=== PATIENT | male | born 1955 | race African-American/Black ===

== ENCOUNTER 2017-06-26 18:09 | Inpatient (IN) | payer OTHER, SELFPAY ==
[2017-06-26 18:55] LABS: #Basophils 0.1 thou/uL (0.0-0.2); #Eosinphils 0.2 thou/uL (0.0-0.7); #Lymphocytes 2.6 thou/uL (1.20-3.40); #Monocytes 0.8 thou/uL (0.11-0.59); #Neutrophils 7.5 thou/uL (1.40-6.50); %Eosinophils 1.7 % (0.0-10.0); %Lymphocytes 23.3 % (21.0-51.0); %Monocytes 6.9 % (0.0-10.0); Hematocrit 45.6 % (42.0-52.0); Mean Platelet Volume 7.8 fL (7.4-10.4); Red Blood Cell (RBC) Count 5.06 mill/uL (4.70-6.10); White Blood Cell (WBC) Count 11.2 thou/uL (4.8-10.8)
[2017-06-26 19:18] LABS: ALT (SGPT) 37 U/L (8-55); AST (SGOT) 21 U/L (5-34); Alkaline Phosphatase 57 U/L (40-150); Anion Gap 11 mmol/L (10-20); BUN (Urea Nitrogen) 11 mg/dL (8.4-25.7); Bilirubin, Total 0.5 mg/dL (0.2-1.2); Calc. Creatinine Clearance 0 mL/min (70-130); Calcium 9.5 mg/dL (7.8-10.44); Carbon Dioxide 27 mmol/L (23-31); Chloride 102 mmol/L (98-107); Estimated GFR-MDRD 52; Globulin 3.7 g/dL (2.4-3.5); Protein, Total 7.8 g/dL (5.8-8.1)
[2017-06-26] MEDS ORDERED: Ondansetron HCl/PF 4 MG/2 ML Vial ONE (19:18)
[2017-06-26 19:32] LABS: Bilirubin Negative (Negative); Blood, Urine Negative (Negative); Glucose, Urine (Dipstick) Negative (Negative); Ketone, Urine Negative (Negative); Nitrite Negative (Negative); Protein, Urine (Dipstick) Negative (Neg-Trace); Urobilinogen 0.2 mg/dL (0.2-1.0)
[2017-06-26 19:54] LABS: Troponin I Less than 0.010 ng/mL (< 0.028)
[2017-06-26 20:19] LABS: PTT 25.6 SEC (22.9-36.1); Prothrombin Time 13.1 SEC (12.0-14.7)
[2017-06-26 20:25] LABS: Acetaminophen Less than 6.0 mcg/mL (10.0-30.0); CK (CPK) 309 U/L (30-200); Salicylate Less than 8.0 mg/dL (15.0-30.0)
--- NOTE | 2017-06-26 20:46 | RAD ---
CHEST ONE VIEW: History: Altered mental status, diarrhea, fatigue. FINDINGS: Left cardiac margin is partially obscured by subtle infiltrate within the lingula of the left upper lobe. Mediastinum is midline. Right lung is well inflated. There is no evidence of pneumothorax. IMPRESSION: Subtle left upper lobe lingular infiltrate. Clinical correlation regarding other signs and symptoms of left upper lobe pneumonitis is required. Please consider upright PA and lateral views of the ches t when patient can undergo that exam. POS: [facility]
[2017-06-26 21:18] LABS: Amphetamine Not Detected (NotDetected); Methadone Not Detected (NotDetected); Methamphetamine Not Detected (NotDetected)
--- NOTE | 2017-06-26 21:59 | CT ---
CT HEAD NONCONTRAST: History: Altered mental status. FINDINGS: A wedge shaped area of decreased density at the left temporoparietal area extends through the overly ing cortex. There is no mass effect or shift of midline structures. No acute intracranial hemorrhage is evident. 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 No acute intracranial abnorm alities are demonstrated. POS: [facility]
[2017-06-26 22:43] LABS: Sodium 139 mmol/L (135-148)
[2017-06-26 22:44] LABS: Mode RA; Modified Allen's Test POSITIVE; Vent NO
[2017-06-26 23:24] LABS: Troponin I 0.015 ng/mL (< 0.028)
--- NOTE | 2017-06-26 23:49 | PDOC.EVN ---
Event Note - Event Note Event Note: [id number] h&p dictated 1. Encephalopathy + R/O Cerebellar stroke 2. Elevated bp 3. H/O Smoking and alcohl usage plan: see orders
[2017-06-27 01:07] LABS: Troponin I Less than 0.010 ng/mL (< 0.028)
[2017-06-27 01:08] VITALS: BMI 33.7
--- NOTE | 2017-06-27 07:21 | HP ---
DATE OF ADMISSION: 06/26/2017 CHIEF COMPLAINT: Confusion and falls. HISTORY OF PRESENT ILLNESS: The patient is 62 years old male who was at work with no significant past medical history, all of sudden started feeling confused and unsteady gait. The patient when he tried to work and felt like he is going to fall out. He did fall on the ground, but denies any trauma. Denies any injury. Denies any nausea, denies any vomiting, denies any chest pain, and denies any trouble breathing. The patient's symptoms persisted, so he came to the ER. Upon ER arrival, the patient's confusion started getting better. Denies any fever, denies any chills, denies any similar episodes. PAST MEDICAL HISTORY: None. PAST SURGICAL HISTORY: None. SOCIAL HISTORY: Positive for smoking. Denies alcohol or illicit drugs. MEDICATIONS: None. ALLERGIES: None. REVIEW OF SYSTEMS: Constitutional: Denies any fever, denies any chills. Eyes : Denies any vision problems. Ears: Denies any hearing loss. Neck: Denies any neck pain. Cardiovascular system: Denies any chest pain, denies any palpations. Respiratory system: Denies any cough, denies any sputum production. Gastrointestinal: Denies any nausea, vomiting. Cranial nerve system: Positive for confusion, positive for unsteady gait. Integumentary: Denies any rash. Musculoskeletal: Denies any joint deformities. All other review of systems are reviewed and are negative. PHYSICAL EXAMINATION: CONSTITUTIONAL/VITAL SIGNS: At the time of H and P performed, blood pressure is 160/82, pulse ox 97%, heart rate 76. GENERAL: The patient appears comfortable. HEENT: Pupils equal, round, and reactive to light. Anterior nares patent. Nose normal. Ears normal. Teeth intact. Tongue is moist. NECK: Supple, no JVD. CARDIOVASCULAR SYSTEM: S1, S2 present. Regular rate and rhythm, no murmurs, no rubs, no gallops. RESPIRATORY SYSTEM: No wheezing, no rhonchi. Breath sounds bilaterally. GASTROINTESTINAL: Abdomen is soft, nontender, no guarding, no organomegaly, no masses felt MUSCULOSKELETAL: No edema. INTEGUMENTARY: No rashes seen. PSYCHIATRIC: Mood is appropriate at this time. LABORATORY DATA: At the time of H and P performed, white count 11.2, hemoglobin 15, platelet count is 210. BMP showed sodium 135, potassium 4.7, chloride 102, CO2 of 27, BUN of 11, creatinine 1.39. PT 13.1, INR 1. CT head, no acute disease. ASSESSMENT AND PLAN: The patient is 62 years old male. 1. Rule out cerebellar stroke/unsteady gait. Plan to do an MRI brain. Plan to consult Neurology to evaluate the patient. Plan to monitor the patient closely. 2. Encephalopathy, probably secondary to possible transient ischemic attack, we will monitor the patient closely. Check ammonia level. 3. Elevated blood pressure, possible hypertension, new onset. Monitor blood pressure, slowly titrate blood pressure medications. 4. History of smoking and alcohol usage. Consult patient at the time of discharge to avoid smoking and drinking. Case was discussed in detail with the patient. JHON
--- NOTE | 2017-06-27 08:11 | ULT ---
BILATERAL CAROTID DUPLEX ULTRASOUND: DATE: 06/27/17 HISTORY: Atherosclerotic vascular disease, altered mental status. TECHNIQUE: Clark scale ultrasound with color flow and spectral Doppler imaging of the extracranial carotid arter y systems performed. FINDINGS: There is mild plaque formation on either side. The peak systolic velocity in the right ICA measures 46 cm/second with an end-diastolic velocity of 12 cm/second and a systolic ratio of 0.55. The peak systolic velocity in the left ICA measures 50 cm/second with an end-diastolic velocity of 1 7 cm/second and a systolic ratio of 0.66. Flow in both vertebral arteries remains antegrade. IMPRESSION: No evidence of hemodynamically significant stenosis. POS: [facility]
[2017-06-27] MEDS ORDERED: FLU VACC QS2017-18 36 mo. & older 0.5 ML SYRINGE IM ONE (09:00)
[2017-06-27] MEDS ORDERED: Heparin 5,000 UNITS/ML VIAL SC SCH (09:00)
[2017-06-27] MEDS ORDERED: Amlodipine 10 MG TAB PO SCH (09:00)
[2017-06-27 09:49] LABS: Anion Gap 13 mmol/L (10-20); BUN (Urea Nitrogen) 10 mg/dL (8.4-25.7); Calc. Creatinine Clearance 96 mL/min (70-130); Calcium 8.9 mg/dL (7.8-10.44); Carbon Dioxide 24 mmol/L (23-31); Chloride 104 mmol/L (98-107); Estimated GFR-MDRD 66
[2017-06-27] MEDS: Aspirin 81 mg Enteric Coated Tablet PO SCH (09:55)
--- NOTE | 2017-06-27 12:03 | PDOC.PN ---
- Subjective Encounter Start Date: 06/27/17 Encounter Start Time: 11:59 Subjective: seen and examined at bedside.son in room.wants to take pt AMA -: Pt reports problem w vision and spatial recognition -: pt reports that he feels better but appears confused - Objective MAR Reviewed: Yes Vital Signs & Weight: Vital Signs (12 hours) Temp Pulse Resp BP BP Pulse Ox 06/27/17 09:56 80 150/74 H 06/27/17 08:00 98.6 F 80 14 150/74 H 94 L 06/27/17 04:03 97.5 F L 86 20 143/65 H 94 L Weight Weight 261 lb I&O: 06/26/17 06/27/17 06/28/17 06:59 06:59 06:59 Intake Total 180 Output Total 800 Balance -620 Result Diagrams: 06/26/17 18:45 06/27/17 08:43 Additional Labs: Laboratory Tests 06/26/17 06/26/17 06/26/17 18:45 18:45 18:45 Creatinine 1.39 H Ammonia Creatine Kinase Troponin I Less than 0.010 Triglycerides Cholesterol LDL Cholesterol, Calc HDL Cholesterol Lipase 21 TSH 3rd Generation Plasma Alcohol 06/26/17 06/26/17 06/26/17 18:45 18:45 20:27 Creatinine Ammonia 23 Creatine Kinase 309 H Troponin I Triglycerides Cholesterol LDL Cholesterol, Calc HDL Cholesterol Lipase TSH 3rd Generation 1.2575 Plasma Alcohol Less than 10 06/26/17 06/27/17 06/27/17 22:50 00:28 04:01 Creatinine Ammonia Creatine Kinase Troponin I 0.015 Less than 0.010 Triglycerides 71 Cholesterol 141 LDL Cholesterol, Calc 80 HDL Cholesterol 47 Lipase TSH 3rd Generation Plasma Alcohol 06/27/17 08:43 Creatinine 1.32 H Ammonia Creatine Kinase Troponin I Triglycerides Cholesterol LDL Cholesterol, Calc HDL Cholesterol Lipase TSH 3rd Generation Plasma Alcohol Radiology Reviewed by me: Yes (MRI brain-extensive b/l Cerebral infarction w possible hemorrhage) Phys Exam - Physical Examination Constitutional: NAD sitiing up on the side of the bed HEENT: PERRLA, moist MMs, sclera anicteric, oral pharynx no lesions Neck: no nodes, no JVD, supple, full ROM Respiratory: no wheezing, no rales, no rhonchi, clear to auscultation bilateral Cardiovascular: RRR, no significant murmur Gastrointestinal: soft, non-tender, no distention, positive bowel sounds Musculoskeletal: no edema, pulses present Neurological: non-focal, normal sensation, moves all 4 limbs slow speech and confusion noted. Psychiatric: normal affect, A&O x 3 Dx/Plan (1) CVA (cerebral vascular accident) Code(s): I63.9 - CEREBRAL INFARCTION, UNSPECIFIED Status: Acute Qualifiers: Laterality of affected vessel: bilateral (2) HTN (hypertension) Code(s): I10 - ESSENTIAL (PRIMARY) HYPERTENSION Status: Chronic (3) RANCHO (acute kidney injury) Code(s): N17.9 - ACUTE KIDNEY FAILURE, UNSPECIFIED Status: Acute (4) Obesity (BMI 30.0-34.9) Code(s): E66.9 - OBESITY, UNSPECIFIED Status: Chronic - Plan plan discussed w/ family, DVT proph w/SCDs cont ASA.change to NPO status.EMPLOYEE WELLNESS/FITNESS COORDINATOR,OT/PT. -: hold BP meds to allow permissive HTN. -: DC heparin given concerns for hemorrhage. -: discussed w son and advised to keep pt here.high risk of if transferr -: pt's son wanted to go AMA but now decided to stay. * . Review of Systems - Review of Systems Other: can not be reliably. obtained due to confusion.he denies any discomfort , problem with speech/swollowing.no chest pain/SOB.no Cough.no muscle weakness.no diplopia/blurred vision. - Medications/Allergies Allergies/Adverse Reactions: Allergies Allergy/AdvReac Type Severity Reaction Status Date / Time No Known Drug Allergies Allergy Verified 06/27/17 00:26 Medications: Current Medications Aspirin (Ecotrin) 81 mg PO DAILY [facility] Last Admin: 06/27/17 09:55 Dose: 81 mg Sodium Chloride (Normal Saline 0.9%) 1,000 mls @ 70 mls/hr IV .[id number] [facility]
[2017-06-27] MEDS: Sodium Chloride 0.9% 1,000 ML IV SCH (12:40)
--- NOTE | 2017-06-27 13:34 | MRI ---
BRAIN MRI WITHOUT CONTRAST: Date: 06-27-17 History: Altered mental status, stroke. Technique: Multiplanar, multisequence MR imaging of the brain is provided without contrast. FINDINGS: There are numerous areas of restricted diffuse consistent with acute infarction within bilateral cer ebral hemispheres. The most confluent areas of acute infarction are seen in the posterior left front oparietal region measuring up to 3.5 cm, and in the posterior left temporal occipital region measuri ng up to 2 cm. There are numerous additional small foci of restricted diffusion within the deep whit e matter bilateral frontal lobes as well as the posterior bilateral frontoparietal regions approachi ng the vertex. No evidence for acute infarction is seen within the brain stem or cerebellar hemispheres. The gradient echo imaging demonstrates mild linear areas of blooming artifact within the areas of ac dilan infarction within the left posterior frontoparietal region, suggesting a mild degree of associat ed hemorrhage on the basis of hemorrhagic infarction. In addition, there is a punctate focus of bloo jey artifact within the posteromedial aspect of the right frontal lobe approaching the vertex which could signify an additional area of hemorrhagic conversion. The T2 and FLAIR imaging demonstrate cortically based increased signal intensity in the areas of the above described acute infarction. There is mucosal thickening involving the alveolar recess and carlotta ateral maxillary sinuses, left greater than right. Arterial flow voids at axial level of skull base appear grossly unremarkable on the T2 weighted imag ing. Regional bone marrow signal intensity appears grossly unremarkable. IMPRESSION: Extensive bilateral acute cerebral infarctions with scattered small areas of blooming artifact sugge sting hemorrhagic conversion. Dr. Chin made aware at 11:50 a.m. 06-27-17. Code CR POS: [facility]
--- NOTE | 2017-06-27 19:10 | CON ---
DATE OF CONSULTATION: 06/27/2017 CONSULTING PHYSICIAN: Hospitalist service. IMPRESSION: 1. Posterior circulation strokes involving both occipital lobes regions, worse on the left than the right. 2. Tobacco use. PLAN: 1. Aspirin 81 mg per day. 2. Statin. 3. Echocardiogram. 4. Outpatient followup with his physicians in [place]. 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 He has no known medical problems. He presented with an acute change in mental status, feeling a bit confused. He did not note any headache, nausea, vomiting, vertigo, lateralized weakness or numbnes s. His initial CT scan of the brain was unremarkable. Followup MRI of the brain shows evidence of ischemia involving a region of the left parietal, occipital, and temporal lobe, more so than on the right which involves primarily the mesial occipital lobe. There is a tiny bit of hemorrhagic conver tala on the left. There is no mass effect associated with it. His carotid Doppler did not show any stenosis. His EKG does show normal sinus rhythm. He has no past medical history otherwise. SOCIAL HISTORY: Positive tobacco. No alcohol abuse. FAMILY HISTORY: Noncontributory. ALLERGIES: None reported. REVIEW OF SYSTEMS: No complaints of chest pain or palpitations. PHYSICAL EXAMINATION: GENERAL: He is a well-nourished middle-aged man in no acute distress. HEENT: Pupils equal and reactive. Conjunctivae clear. Oropharynx clear. NECK: No lymphadenopathy noted. EXTREMITIES: No cyanosis noted. NEUROLOGIC: He is alert and appropriate. His speech is fluent and clear. Cranial nerve exam shows subtle right facial droop. Visual field testing showed a right homonomous hemianopsia. Motor exam showed good strength bilaterally. [id number] movements were symmetric and without any tremor o r dysmetria. He can walk independently. His sensation was intact to touch bilaterally. Studies were reviewed. Echocardiogram is pending. SUMMARY: This is a middle-aged man with acute stroke involving the vertebrobasilar distribution, po ssibly thromboembolic in origin. He has no cardiac history to suggest any etiology, intermittent at rial fibrillation would be a consideration to be followed up on as an outpatient. I would start him on antiplatelet and statin therapy and I think he can probably be discharged home under his family's care.
[2017-06-27] MEDS ORDERED: Atorvastatin Calcium 20 MG TAB PO SCH (21:00)
[2017-06-28] MEDS: Sodium Chloride 0.9% 1,000 ML IV SCH ×2 (02:15→17:18)
[2017-06-28 05:30] LABS: #Basophils 0.1 thou/uL (0.0-0.2); #Eosinphils 0.2 thou/uL (0.0-0.7); #Lymphocytes 2.6 thou/uL (1.20-3.40); #Monocytes 0.7 thou/uL (0.11-0.59); #Neutrophils 6.2 thou/uL (1.40-6.50); %Basophils 0.7 % (0.0-1.0); %Eosinophils 2.2 % (0.0-10.0); %Lymphocytes 26.2 % (21.0-51.0); %Monocytes 7.4 % (0.0-10.0); Hematocrit 43.2 % (42.0-52.0); Mean Platelet Volume 7.5 fL (7.4-10.4); Red Blood Cell (RBC) Count 4.79 mill/uL (4.70-6.10); White Blood Cell (WBC) Count 9.8 thou/uL (4.8-10.8)
[2017-06-28 05:48] LABS: Anion Gap 12 mmol/L (10-20); BUN (Urea Nitrogen) 11 mg/dL (8.4-25.7); Calc. Creatinine Clearance 109 mL/min (70-130); Calcium 8.7 mg/dL (7.8-10.44); Carbon Dioxide 25 mmol/L (23-31); Chloride 104 mmol/L (98-107); Estimated GFR-MDRD 77
[2017-06-28] MEDS: Aspirin 81 mg Enteric Coated Tablet PO SCH (13:15)
[2017-06-28 15:41] VITALS: BP 139/67; TEMP 98.5
--- NOTE | 2017-06-28 15:48 | PDOC.PN ---
- Subjective Encounter Start Date: 06/28/17 Encounter Start Time: 10:00 Subjective: NO NEW COMPLAINTS, WALKING WITH PT IN [place] - Objective MAR Reviewed: Yes Vital Signs & Weight: Vital Signs (12 hours) Temp Pulse Pulse Pulse Resp BP BP 06/28/17 15:40 98.5 F 71 20 06/28/17 12:00 98.6 F 86 22 H 06/28/17 09:43 75 76 160/73 H 147/72 H 06/28/17 07:29 98.7 F 87 20 06/28/17 04:50 98.2 F 75 16 BP Pulse Ox 06/28/17 15:40 139/67 97 06/28/17 12:00 155/77 H 96 06/28/17 09:43 06/28/17 07:29 171/82 H 95 06/28/17 04:50 155/77 H 98 Weight Weight 261 lb I&O: 06/27/17 06/28/17 06/29/17 06:59 06:59 06:59 Intake Total 180 1300 Output Total 800 Balance -620 1300 Result Diagrams: 06/28/17 05:02 06/28/17 05:02 Radiology Reviewed by me: Yes Phys Exam - Physical Examination Constitutional: NAD HEENT: PERRLA, moist MMs, sclera anicteric Neck: supple, full ROM Respiratory: no wheezing, clear to auscultation bilateral Cardiovascular: RRR, no significant murmur Gastrointestinal: soft, non-tender Musculoskeletal: no edema Neurological: non-focal, moves all 4 limbs Psychiatric: normal affect, A&O x 3 Skin: no rash, normal turgor Dx/Plan (1) RANCHO (acute kidney injury) Code(s): N17.9 - ACUTE KIDNEY FAILURE, UNSPECIFIED Status: Acute (2) CVA (cerebral vascular accident) Code(s): I63.9 - CEREBRAL INFARCTION, UNSPECIFIED Status: Acute Qualifiers: Laterality of affected vessel: bilateral (3) HTN (hypertension) Code(s): I10 - ESSENTIAL (PRIMARY) HYPERTENSION Status: Chronic - Plan cont current plan of care, PT/OT AWAITING APPROVAL FOR INPATIENT REHAB, HOME TOMORROW IF NO APPROVAL * .
--- NOTE | 2017-06-29 00:25 | DIS ---
DATE OF ADMISSION: 06/26/2017 DATE OF DISCHARGE: 06/28/2017 PRIMARY DISCHARGE DIAGNOSES: 1. Left-sided temporoparietal ischemic infarct. 2. Hypertension. 3. Tobacco use. HOSPITAL COURSE: The patient was admitted on the after a fall and loss of balance and conscious ness. The patient was seen and assessed in the ER. Brain CT was performed, which showed encephaloma lacia from an old infarct at the left temporoparietal level. MRI was ordered and Neurology was consu lted. The MRI performed showed extensive bilateral acute cerebral infarctions with scattered small a reas of blooming artifact suggesting hemorrhagic conversion. The most confluent areas of acute infar ction were seen in the posterior left frontoparietal region and in the posterior left temporal occipi srikanth region with numerous small foci within the deep matter of bilateral frontal lobes. The patient w as started on statin medications as well as antiplatelet therapy. The patient physically improved du ring his stay but still exhibited cognitive deficits as well as expressive deficits. The patient was assessed for transfer to inpatient rehabilitation due to payer issues did not qualify. The patient was deemed stable to be discharged to home in the care of his family and we have ordered outpatient s ech therapy, physical therapy, and occupational therapy. CONSULTANTS: Neurology, Dr. Moses. PROCEDURES: Carotid Doppler study which showed no evidence of hemodynamically significant stenosis. Brain MRI results discussed above. Brain CT results discussed above. DISPOSITION: To home with outpatient physical, occupational, and speech therapy. DISCHARGE MEDICATIONS: Amlodipine 5 mg 1 p.o. q. day, atorvastatin 20 mg 1 at bedtime, and aspirin 8 1 mg q. day. DISCHARGE DIET: Heart healthy, low salt. DISCHARGE ACTIVITY: As tolerated. The patient is encouraged to refrain from smoking or drinking alc ohol. PHYSICAL EXAMINATION: GENERAL: No acute distress. HEAD: Normocephalic, atraumatic. EYES: PERRL. Extraocular muscles intact. LUNGS: Clear to auscultation. CARDIOVASCULAR: Regular rate and rhythm, no murmurs, or gallops. ABDOMEN: Nontender, nondistended. EXTREMITIES: No clubbing, cyanosis, or edema. DISCHARGE INSTRUCTIONS: The patient is to follow up with [facility] da ys. The patient is also encouraged to follow up with neurologist in his hometown.
[2017-06-29] MEDS ORDERED: Amlodipine 5 MG TAB PO SCH (09:00)
--- NOTE | 2017-08-05 14:03 | EKG ---
Test Reason : Blood Pressure : / mmHG Vent. Rate : 084 BPM Atrial Rate : 084 BPM P-R Int : 162 ms QRS Dur : 082 ms QT Int : 356 ms P-R-T Axes : 046 -07 034 degrees QTc Int : 420 ms Normal sinus rhythm Poor precordial transition Moderate voltage criteria for LVH, may be normal variant Borderline ECG Artifact Confirmed by KASH MEJIA DO ([id number]), city editor MARIA EUGENIA TAM ([id number]) on 08/05/2017 2:02:32 PM Referred By: Confirmed By:KASH MEJIA DO
== END 2017-06-28 17:10 | disposition home or self-care (01) | DRG 64 ==
LOC: ERS 18:09 → 2SE 20:30
PROVIDERS: ADMIT Internal Medicine; ATTEND Internal Medicine
DX: I63.333 Cerebral infarction due to thrombosis of bilateral posterior cerebral arteries (principal); G93.40 Encephalopathy, unspecified; N17.9 Acute kidney failure, unspecified; G93.89 Other specified disorders of brain; R47.01 Aphasia; I10 Essential (primary) hypertension; R41.89 Other symptoms and signs involving cognitive functions and awareness; F17.210 Nicotine dependence, cigarettes, uncomplicated; E66.9 Obesity, unspecified; Z68.34 Body mass index [BMI] 34.0-34.9, adult; W18.30XA Fall on same level, unspecified, initial encounter
CPT/HCPCS: 36415; 70450; 70551; 71010; 80048; 80053; 80061; 80306; 80307; 81003; 82140; 82553; 82805; 83690; 84443; 84484; 85025; 85610; 85730; 90471; 90682; 90732; 93005; 93306; 93880; 96361; 96374; 99406; G0008; G0009; G8978-GP-CL; G8979-GP-CJ; G8987-GO-CK; G8988-GO-CI; G8996-GN-CI; G8997-GN-CI; J1644; J2405; Q2036

== ENCOUNTER 2020-02-11 14:12 | Emergency (ER) | payer OTHER | END 2020-02-11 14:30 | disposition home or self-care (01) | LOC: ERS 14:12 | DX: G51.0 Bell's palsy (principal); I10 Essential (primary) hypertension; Z87.891 Personal history of nicotine dependence | CPT/HCPCS: 99283 ==